=== PATIENT | male | born 1985 | race Caucasian/White ===

== ENCOUNTER 2017-04-28 08:18 | Emergency (ER) | payer SELFPAY ==
[2017-04-28 08:33] LABS: Bilirubin Small (Negative); Blood, Urine Large (Negative); Clarity Cloudy (Clear); Glucose, Urine (Dipstick) Negative (Negative); Leukocyte Negative (Negative); Nitrite Negative (Negative); Protein, Urine (Dipstick) > or equal to 300 mg/dL (Neg-Trace)
[2017-04-28] MEDS ORDERED: Ondansetron HCl/PF 4 MG/2 ML Vial ONE (08:33)
[2017-04-28] MEDS ORDERED: Ketorolac Tromethamine 30 MG/ML VIAL ONE (08:33)
[2017-04-28 08:40] LABS: Bacteria/HPF 1+ HPF (None Seen); Crystals/HPF 1+ AMORPH URATES HPF (Negative); RBC/HPF 21-50 HPF (0-3); Specific Gravity, Urine 1.025 (1.005-1.030); Squamous Epithelial 0-3 HPF (0-3); WBC/HPF 0-3 HPF (0-3)
[2017-04-28 08:47] LABS: #Basophils 0.2 thou/uL (0.0-0.2); #Eosinphils 0.2 thou/uL (0.0-0.7); #Lymphocytes 1.8 thou/uL (1.20-3.40); #Monocytes 0.6 thou/uL (0.11-0.59); #Neutrophils 5.1 thou/uL (1.40-6.50); %Eosinophils 2.4 % (0.0-10.0); %Lymphocytes 22.4 % (21.0-51.0); %Monocytes 7.5 % (0.0-10.0); %Neutrophils 65.7 % (42.0-75.0); Mean Corpuscular HGB CONC 35.2 g/dL (32.0-36.0); Mean Corpuscular Hemoglobin 31.7 pg (27.0-31.0); Mean Platelet Volume 8.3 fL (7.4-10.4); Platelet Count 304 thou/uL (130-400); RBC Distribution Width 12.1 % (11.5-14.5); Red Blood Cell (RBC) Count 5.05 mill/uL (4.70-6.10); White Blood Cell (WBC) Count 7.8 thou/uL (4.8-10.8)
[2017-04-28 09:01] LABS: ALT (SGPT) 13 U/L (8-55); AST (SGOT) 17 U/L (5-34); Albumin 4.5 g/dL (3.5-5.0); Alkaline Phosphatase 87 U/L (40-150); Anion Gap 12 mmol/L (10-20); BUN (Urea Nitrogen) 14 mg/dL (8.9-20.6); Bilirubin, Total 1.8 mg/dL (0.2-1.2); Calc. Creatinine Clearance 0 mL/min (70-130); Calcium 10.1 mg/dL (7.8-10.44); Carbon Dioxide 26 mmol/L (22-29); Chloride 106 mmol/L (98-107); Estimated GFR-MDRD 78; Glucose 101 mg/dL (70-105); Protein, Total 7.5 g/dL (6.0-8.3); Sodium 140 mmol/L (136-145)
[2017-04-28] MEDS ORDERED: methylPREDNISolone Sod Succ/PF 125 MG/2 ML VIAL ONE (09:01)
--- NOTE | 2017-04-28 18:41 | CT ---
CT ABDOMEN AND PELVIS WITHOUT CONTRAST 04/28/[address] of the abdomen and pelvis was performed for evaluation of right flank pain and gross hematu jeannie. No prior scans were available for comparison. Axial slices were acquired, then coronal and sagit maria de jesus reconstructions were done. Small calculi are present in each kidneys. There is a small calcification right at or near the right UVJ that appears to be in the right ureter. It is 3 mm in size. Any hydronephrosis on the right is mi nimal. Other pelvic calcifications on the left side of the pelvis are most likely phleboliths. The remainder of the exam was unremarkable. The lung bases are clear. The liver, spleen, pancreas, ga llbladder, adrenal gland and abdominal aorta were all unremarkable within the limitations of a noncon trast study. The patient has a paucity of body fat which makes seeing fine detail difficult. There were no distend ed loops of bowel or signs of inflammation or wall thickening. CT of the pelvis showed no pelvic masses, fluid collections, or other acute pelvic findings. There ar e no inflammatory changes. IMPRESSION: Bilateral renal calculi with a 3 mm distal right ureteral calculus at the right UVJ. POS: HOME
== END 2017-04-28 09:10 | disposition home or self-care (01) ==
LOC: BURERS 08:18
DX: N13.2 Hydronephrosis with renal and ureteral calculous obstruction (principal)
CPT/HCPCS: 74176; 80053; 81003; 81015; 85025; 96374; 96375; J1885; J2405; J2930